=== PATIENT | female | born 1995 | race Caucasian/White ===

== ENCOUNTER 2017-11-02 14:52 | Emergency (ER) | payer SELFPAY ==
[~2017-11-02] VITALS: Ht 157.5 cm; Wt 48.5 kg
[2017-11-02] MEDS ORDERED: SODIUM CHLORIDE FLUSH 10ML SYR IVF ONE (15:30)
[2017-11-02] MEDS ORDERED: ASPIRIN 81 MG TABLET CHEW PO ONE (15:30)
[2017-11-02] MEDS ORDERED: LORazepam 2 MG/ML, 1ML IVPush ONE (15:30)
[2017-11-02] MEDS ORDERED: SODIUM CHLORIDE 0.9% 1,000ML IVBOLUS ONE (15:30)
[2017-11-02] MEDS ORDERED: ASPIRIN 81 MG TABLET CHEW ONE (16:25)
[2017-11-02] MEDS ORDERED: LORazepam 2 MG/ML, 1ML ONE (16:26)
[2017-11-02 16:32] LABS: HEMOGLOBIN 16.7 g/dL (11.7-16.4); WHITE BLOOD COUNT 16.5 x10^3/uL (4.5-13.2)
[2017-11-02 16:39] LABS: PATH.CAST-FLAG NOT PRESENT; SPERM-FLAG NOT PRESENT; SRC-FLAG NOT PRESENT; XTAL-FLAG NOT PRESENT; YLC-FLAG NOT PRESENT
[2017-11-02 16:41] LABS: BLOOD UREA NITROGEN 12 mg/dL (7-18)
[2017-11-02 16:47] LABS: ASPARTATE AMINO TRANSFERASE 16 U/L (15-37)
[2017-11-02 16:48] LABS: IS PT STATUS REG ER OR PRE ER? YES
[2017-11-02 18:15] VITALS: BP 111/67
== END 2017-11-02 18:18 | disposition home or self-care (01) ==
LOC: ED 15:50
DX: J20.8 Acute bronchitis due to other specified organisms (principal); B96.89 Other specified bacterial agents as the cause of diseases classified elsewhere; R07.89 Other chest pain; F41.1 Generalized anxiety disorder; F17.200 Nicotine dependence, unspecified, uncomplicated
CPT/HCPCS: 36415; 71020; 80053; 81001; 84484; 84703; 85025; 85379; 93005; 96361; 96374; 99285; J2060; J7030

== ENCOUNTER 2018-05-24 01:51 | Observation (INO) | payer MEDICAID ==
[~2018-05-24] VITALS: Ht 157.5 cm; Wt 45.0 kg
[2018-05-24] MEDS ORDERED: ONDANSETRON ODT 4 MG PO ONE (02:30)
[2018-05-24] MEDS ORDERED: ONDANSETRON ODT 4 MG ONE (02:31)
[2018-05-24 02:39] LABS: MEAN CORPUSCULAR HEMOGLOBIN 32.5 pg (27.0-34.8); MEAN CORPUSCULAR HGB CONC 34.3 g/dL (32.4-35.8); MEAN CORPUSCULAR VOLUME 94.7 fL (80-100); MEAN PLATELET VOLUME 7.9 fL (7.4-10.4); PLATELET COUNT 244 x10^3/uL (130-400); RED BLOOD COUNT 4.33 x10^6/uL (3.82-5.3); RED CELL DISTRIBUTION WIDTH 12.9 % (9.6-15.2)
[2018-05-24 02:52] LABS: ALANINE AMINOTRANSFERASE 19 U/L (12-78); ALBUMIN 3.7 g/dL (3.4-5.0); ANION GAP 9 mmol/L (5-15); CALCIUM 9.2 mg/dL (8.5-10.1); CHLORIDE 108 mmol/L (98-107); CREATININE 0.61 mg/dL (0.55-1.02)
[2018-05-24 02:53] LABS: BASOPHILS # (AUTO) 0.03 x10^3/uL (0-0.3); BASOPHILS % (AUTO) 0 % (0-1); EOSINOPHILS # (AUTO) 0.47 x10^3/uL (0-0.8); EOSINOPHILS % (AUTO) 3 % (1-7); LYMPHOCYTES # (AUTO) 3.28 x10^3/uL (1-6.1); LYMPHOCYTES % (AUTO) 17 % (22-44); MD SCAN; MONOCYTES # (AUTO) 1.53 x10^3/uL (0-1.4); MONOCYTES % (AUTO) 8 % (2-9); NEUTROPHILS # (AUTO) 13.55 x10^3/uL (1.8-8.0); NEUTROPHILS % (AUTO) 72 % (42-75)
[2018-05-24 02:54] LABS: ALKALINE PHOSPHATASE 70 U/L (45-117); BILIRUBIN,TOTAL 0.6 mg/dL (0.2-1.0)
[2018-05-24] MEDS ORDERED: SODIUM CHLORIDE FLUSH 10ML SYR IVF ONE (03:00)
[2018-05-24] MEDS ORDERED: MORPHINE SULFATE 4 MG/ML, 1ML IVPush PRN ×2 (03:00→06:30)
[2018-05-24 03:11] LABS: MICROSCOPIC NOT IND
[2018-05-24 03:12] LABS: CULTURE INDICATED? NO
[2018-05-24 04:24] LABS: CLUE CELLS PRESENT (NONE SEEN); WET PREP WBCS FEW (FEW)
[2018-05-24] MEDS ORDERED: SODIUM CHLORIDE 0.9% 1,000 ML IV ONE (04:50)
[2018-05-24] MEDS ORDERED: HYDROmorphone 1 MG/ML, 1ML IVPush PRN (05:00)
[2018-05-24] MEDS ORDERED: ONDANSETRON 2MG/ML, 2ML IVPush PRN (05:00)
[2018-05-24] MEDS ORDERED: SODIUM CHLORIDE 0.9% 1,000ML IVBOLUS ONE (05:00)
[2018-05-24] MEDS ORDERED: DOXYCYCLINE 100 MG in DEXTROSE 5% 250 ML IV SCH (05:00)
[2018-05-24] MEDS ORDERED: CEFOTETAN PMX 2GM/50ML 50 ML IV ONE (05:00)
[2018-05-24] MEDS ORDERED: SODIUM CHLORIDE FLUSH 10ML SYR IVF PRN (05:00)
[2018-05-24] MEDS ORDERED: OMNIPAQUE 350 MG/ML, 100ML BOTTLE ONE (05:06)
[2018-05-24 05:10] VITALS: BP 118/71
[2018-05-24] MEDS ORDERED: QUET25TA5 PO (05:15)
[2018-05-24] MEDS ORDERED: BUPIVACAINE/PF 0.5% ONE (05:41)
[2018-05-24] MEDS ORDERED: EPINEPHRINE 1 MG/ML, 1ML ONE (05:41)
[2018-05-24] MEDS ORDERED: PROPOFOL 10 MG/ML, 20ML ONE (05:57)
[2018-05-24] MEDS ORDERED: ROCURONIUM 10MG/ML,5ML ONE (05:57)
[2018-05-24] MEDS ORDERED: CEFOTETAN PMX 1GM/50ML 50 ML ONE (05:57)
[2018-05-24] MEDS ORDERED: FENTANYL PF 100 MCG/2ML ONE (06:01)
[2018-05-24] MEDS ORDERED: DEXAMETHASONE 4 MG/ML, 1ML ONE ×3 (06:06→06:26)
[2018-05-24] MEDS ORDERED: NEOSTIGMINE 1 MG/ML, 10ML ONE ×2 (06:06→06:30)
[2018-05-24] MEDS ORDERED: KETOROLAC 30 MG/1 ML ONE (06:06)
[2018-05-24] MEDS ORDERED: MIDAZOLAM 1 MG/ML, 2ML ONE (06:26)
[2018-05-24] MEDS ORDERED: GLYCOPYRROLATE 0.4 MG/2 ML, 2ML ONE ×2 (06:30→06:49)
[2018-05-24] MEDS ORDERED: hydrALAzine 20 MG/ML, 1ML IV PRN (06:30)
[2018-05-24] MEDS ORDERED: FENTANYL PF 100 MCG/2ML IV PRN (06:30)
[2018-05-24] MEDS ORDERED: EPHEDRINE 50 MG/ML, 1ML IVPush PRN (06:30)
[2018-05-24] MEDS ORDERED: HALOPERIDOL 5 MG/ML IV PRN (06:30)
[2018-05-24] MEDS ORDERED: ALBUTEROL SULFATE 2.5 MG/3 ML NPPB PRN (06:30)
[2018-05-24] MEDS ORDERED: MEPERIDINE/PF 25MG/0.5ML IVPush PRN (06:30)
[2018-05-24] MEDS ORDERED: LABETALOL 5MG/ML, 20ML IV PRN (06:30)
[2018-05-24] MEDS ORDERED: PROMETHAZINE 25 MG/ML, 1ML IV PRN (06:30)
[2018-05-24] MEDS ORDERED: METOPROLOL 1 MG/ML, 5ML IV PRN (06:30)
[2018-05-24] MEDS ORDERED: ACETAMINOPHEN 325 MG TABLET PO PRN (06:30)
[2018-05-24] MEDS ORDERED: ONDANSETRON 2MG/ML, 2ML ONE (06:30)
[2018-05-24] MEDS ORDERED: OXYcodone 5 MG/5 ML ORAL.SOL UDC PO PRN (06:30)
[2018-05-24] MEDS ORDERED: ACETAMINOPHEN 650 MG/20.3 ML UDC ONE (08:07)
[2018-05-24] MEDS ORDERED: OXYcodone 5 MG/5 ML ORAL.SOL UDC ONE (08:07)
== END 2018-05-24 12:56 | disposition home or self-care (01) ==
LOC: ED 02:52 → UNDOADMOB 04:50 → EDIP 04:50 → INTOOBSV 04:50 → EDIP 06:49 → UNDODISOB 12:56
PROVIDERS: ADMIT Surgery; ATTEND Surgery
DX: K35.3 Acute appendicitis with localized peritonitis (principal); K66.8 Other specified disorders of peritoneum; F41.1 Generalized anxiety disorder; N76.0 Acute vaginitis; K59.00 Constipation, unspecified
CPT/HCPCS: 36415; 74021; 74177; 80053; 81003; 81025; 83690; 85025; 87040; 87210; 87491; 87591; 87808; 88304; 96365; G0378; J0171; J1100; J1885; J2250; J2405; J2704; J2710; J3010; J3490; J7060; Q0162; Q9967; J7030; S0074

== ENCOUNTER 2020-09-12 15:10 | Emergency (ER) | payer SELFPAY ==
[~2020-09-12] VITALS: Ht 157.5 cm; Wt 78.5 kg
[~2020-09-12 15:10] MED LIST: QUET25TA5 PO
[2020-09-12 15:20] VITALS: BP 123/81
[2020-09-12] MEDS ORDERED: MAALOX/HYOSCYAMINE/LIDOCAINE 45 ML BTL ONE (15:48)
[2020-09-12 15:55] LABS: BASOPHILS % (AUTO) 0 % (0-1); EOSINOPHILS % (AUTO) 5 % (1-7); LYMPHOCYTES % (AUTO) 29 % (22-44); MEAN CORPUSCULAR HEMOGLOBIN 30.5 pg (27.0-34.8); MEAN CORPUSCULAR HGB CONC 33.3 g/dL (32.4-35.8); MEAN PLATELET VOLUME 7.2 fL (7.4-10.4); MONOCYTES % (AUTO) 10 % (2-9); NEUTROPHILS % (AUTO) 56 % (42-75); PLATELET COUNT 280 x10^3/uL (130-400); RED BLOOD COUNT 4.82 x10^6/uL (3.82-5.3); RED CELL DISTRIBUTION WIDTH 12.4 % (9.6-15.2)
[2020-09-12 15:56] LABS: MD NO
[2020-09-12] MEDS ORDERED: MAALOX/HYOSCYAMINE/LIDOCAINE 45 ML BTL PO ONE (16:00)
[2020-09-12 16:06] LABS: ALANINE AMINOTRANSFERASE 26 U/L (12-78); ALBUMIN 3.7 g/dL (3.4-5.0); ANION GAP 3 mmol/L (5-15); CALCIUM 10.2 mg/dL (8.5-10.1); CHLORIDE 110 mmol/L (98-107); CREATININE 0.84 mg/dL (0.55-1.02)
--- NOTE | 2020-09-12 16:07 | NUR ---
GI COCKTAIL GIVEN. URINE COLLECTED AND SENT TO LAB. WARM BLANKET PROVIDED. PT RESTING WITH NO COMPLAINTS.
[2020-09-12 16:11] LABS: ALKALINE PHOSPHATASE 78 U/L (45-117); BILIRUBIN,TOTAL 0.4 mg/dL (0.2-1.0); TOTAL PROTEIN 7.6 g/dL (6.4-8.2)
[2020-09-12 16:28] LABS: MICROSCOPIC NOT IND
--- NOTE | 2020-09-12 17:03 | NUR ---
Patient given discharge instructions and they have confirmed that they understand the instructions. Patient ambulatory with steady gait.
== END 2020-09-12 17:04 | disposition home or self-care (01) ==
LOC: ED 16:58
DX: K21.9 Gastro-esophageal reflux disease without esophagitis (principal); R10.13 Epigastric pain; F17.210 Nicotine dependence, cigarettes, uncomplicated
CPT/HCPCS: 36415; 80053; 81003; 83690; 84703; 85025; 99283; 99406